=== PATIENT | male | born 2000 | race Caucasian/White ===

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

== ENCOUNTER 2020-08-10 09:19 | Emergency (ER) | payer SELFPAY ==
[2020-08-10] MEDS ORDERED: Diphtheria,Pertussis(Acell),Tetanus Vaccine 0.5 ML Syringe IM ONE (09:53)
--- NOTE | 2020-08-10 10:45 | EDM.PDOC ---
ED HPI GENERAL MEDICAL PROBLEM - General Stated Complaint: R HAND INJURY Time Seen by Provider: 08/10/20 09:35 Source of Information: Reports: Patient History Limitations: Reports: No Limitations - History of Present Illness INITIAL COMMENTS - FREE TEXT/NARRATIVE: 20-year-old male forts that 2 weeks ago he punched his car window with his right hand and he had some pain in the area at the time but it has progressively worsened with time. Today he was angry again and at approximately 8:40 AM he punched his car window glass with his right hand. He did not break the glass but he does have some swelling and pain over the and third metacarpals dorsally of his right hand. He is rating the pain as a 3/10. It is sore and throbbing. Worse with palpation and movement. He does have full movement of his right hand. He also has an abrasion to the dorsal aspect of the right index finger. There are no other injuries. There are no other associated signs or symptoms. There are no other modifying factors. 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 Right Hand Pain Score (Numeric/FACES): 3 - Related Data Allergies Allergy/AdvReac Type Severity Reaction Status Date / Time No Known Allergies Allergy Verified 07/18/16 21:31 Home Meds: Home Meds NK [No Known Home Meds] 07/18/16 [History] Past Medical History - Past Health History Medical/Surgical History: Denies Medical/Surgical History Social & Family History - Tobacco Use Tobacco Use Status *Q: Current Every Day Tobacco User - Caffeine Use Caffeine Use: Reports: Coffee - Alcohol Use Alcohol Use History: Yes Alcohol Use Frequency: Socially - Living Situation & Occupation Occupation: Employed (He works at a [employer].) Review of Systems - Review of Systems Review Of Systems: See Below Constitutional: Reports: No Symptoms (It has been greater than 5 years since his last tetanus immunization.) Eyes: Reports: No Symptoms Ears: Reports: No Symptoms Nose: Reports: No Symptoms Mouth/Throat: Reports: No Symptoms Respiratory: Reports: No Symptoms Cardiovascular: Reports: No Symptoms GI/Abdominal: Reports: No Symptoms Genitourinary: Reports: No Symptoms Musculoskeletal: Reports: Hand Pain (Right), Other (Left-hand dominant.) Skin: Reports: Wound (Abrasion over dorsal aspect of right index finger ) Neurological: Reports: No Symptoms ED EXAM, GENERAL - Physical Exam Exam: See Below Exam Limited By: No Limitations General Appearance: Alert, WD/WN, No Apparent Distress Eye Exam: Bilateral Eye: EOMI, Normal Inspection Ears: Normal External Exam, Hearing Grossly Normal Ear Exam: Right Ear: Auricle Normal Nose: Normal Inspection, Normal Mucosa, No Blood Throat/Mouth: Normal Inspection, Normal Lips, Normal Oropharynx, Normal Voice, No Airway Compromise Head: Atraumatic Neck: Normal Inspection, Supple, Non-Tender, Full Range of Motion Respiratory/Chest: No Respiratory Distress, Lungs Clear, Normal Breath Sounds, No Accessory Muscle Use, Chest Non-Tender Cardiovascular: Normal Peripheral Pulses, Regular Rate, Rhythm, No Murmur Peripheral Pulses: 2+: Radial (L), Radial (R) GI/Abdominal: Normal Bowel Sounds, Soft, Non-Tender Back Exam: Normal Inspection, Full Range of Motion Extremities: Normal Range of Motion, No Pedal Edema, Normal Capillary Refill, Other (Tender over the dorsal aspect of the right hand second and third MCP areas. No crepitus. No definite bony deformity. Mild swelling.) Neurological: Alert, Oriented, CN II-XII Intact, Normal Cognition, No Motor/Sensory Deficits Psychiatric: Normal Affect Skin Exam: Warm, Dry, Normal Color, No Rash, Wound/Incision (Abrasion over the dorsal aspect of the right fifth finger.) Course - Vital Signs Last Recorded V/S: Last Vital Signs Temp 36.8 C 08/10/20 09:20 Pulse 56 L 08/10/20 10:46 Resp 20 08/10/20 10:46 BP 149/91 H 08/10/20 10:46 Pulse Ox 99 08/10/20 10:46 - Orders/Labs/Meds Meds: Medications Discontinued Medications Generic Name Dose Route Start Last Admin Trade Name Freq PRN Reason Stop Dose Admin Diphtheria/Tetanus/Acell Pertussis 0.5 ml 08/10/20 09:53 08/10/20 10:45 Diphtheria,Pertussis(Acell),Tetanus Vaccine 0.5 Ml Syringe IM 08/10/20 09:54 0.5 ml .ONCE ONE Administration - Radiology Interpretation Free Text/Narrative:: X-ray right hand shows no fracture. - Re-Assessments/Exams Free Text/Narrative Re-Assessment/Exam: 08/10/20 10:30: The x-ray of his right hand showed no definite contracture. He has full range of motion in the right hand. There was an abrasion on his right index finger and he will be given a Tdap immunization because it has been greater than 5 years since his last tetanus immunization. He can use ibuprofen and Tylenol for pain as needed. He should apply ice packs intermittently to the area. I offered him an Nick wrap but he refused it. He should have activity as tolerated with his right hand. Departure - Departure Time of Disposition: 10:45 Disposition: Home, Self-Care 01 Condition: Good Clinical Impression: Contusion of right hand, initial encounter, Abrasion of right index finger, initial encounter - Discharge Information Instructions: Hand Contusion, [id number], Abrasion, [id number] Referrals: PCP,None [Primary Care Provider] - Forms: ED Department Discharge Additional Instructions: The x-ray of your right hand showed no definite fracture. You should apply ice packs intermittently to the right hand for the next few days. Avoid any strenuous use with your right hand for the next few days. He should have activity as tolerated otherwise with your right hand. You were given a Tdap immunization to bring your tetanus immunization status up-to-date. You can take ibuprofen or Tylenol as needed for pain. Back to the emergency department for marked increase in pain, redness or any other signs of infection or any other concerning signs or symptoms. Sepsis Event Note (ED) - Focused Exam Vital Signs: Vital Signs Temp Pulse Resp BP Pulse Ox 08/10/20 10:46 56 L 20 149/91 H 99 08/10/20 09:20 36.8 C 62 20 153/85 H 98
[2020-08-10 11:14] VITALS: BP 149/91; PULSE 56
--- NOTE | 2020-08-10 11:37 | CR ---
INDICATION: Punched a window with right hand, now with pain, second knuckle/finger. RIGHT HAND: Three views of the right hand were obtained 08/10/20 - no comparison. Acute fracture, dislocation or other definite bone or joint abnormality, was not identified. If symptoms persist - if occult fracture site is suspected clinically, reexamination in 10-14 days may be helpful. MTDD
== END 2020-08-10 10:54 | disposition home or self-care (01) ==
LOC: FB.ED 09:19
DX: S60.221A Contusion of right hand, initial encounter (principal); Z23 Encounter for immunization; Z72.0 Tobacco use; W22.8XXA Striking against or struck by other objects, initial encounter
CPT/HCPCS: 73130-RT; 90471; 90715; 99283-25

== ENCOUNTER 2020-09-07 16:03 | Emergency (ER) | payer SELFPAY ==
--- NOTE | 2020-09-07 16:53 | EDM.PDOC ---
ED HPI GENERAL MEDICAL PROBLEM - General Stated Complaint: EAR PAIN Time Seen by Provider: 09/07/20 16:50 Source of Information: Reports: Patient History Limitations: Reports: No Limitations - History of Present Illness INITIAL COMMENTS - FREE TEXT/NARRATIVE: 20-year-old male who reports onset of pain yesterday morning. He reports that it was a crackling and aching type feeling with popping and sharp sensation and it has persisted today and seems to have worsened with time. He has had no drainage from that ear. He has had no nasal congestion. There has been no sore throat. He rates the pain as a 6/10. He reports that it feels exactly like when he had an ear infection as a child. No history of trauma to the ear. No Q-tips used in the left ear.. There are no other associated signs or symptoms. There are no other modifying factors. 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 Surgical history as detailed below.) - Past Surgical History HEENT Surgical History: Reports: Myringotomy w Tube(s) (As a child.) Social & Family History - Tobacco Use Tobacco Use Status *Q: Current Every Day Tobacco User - Caffeine Use Caffeine Use: Reports: Soda - Alcohol Use Alcohol Use History: No - Living Situation & Occupation Occupation: Employed (He works at a [employer].) ED ROS ENT - Review of Systems Review Of Systems: See Below Constitutional: Denies: Fever, Chills HEENT: Reports: Ear Pain. Denies: Throat Pain Respiratory: Denies: Shortness of Breath, Cough Cardiovascular: Denies: Chest Pain, Palpitations Endocrine: Denies: Fatigue GI/Abdominal: Denies: Nausea, Vomiting : Denies: Dysuria, Hematuria Musculoskeletal: Denies: Neck Pain, Back Pain Skin: Denies: Diaphoresis, Rash Neurological: Denies: Dizziness, Headache Psychiatric: Denies: Anxiety Hematologic/Lymphatic: Denies: Easy Bleeding, Easy Bruising ED EXAM, ENT - Physical Exam Exam: See Below Exam Limited By: No Limitations General Appearance: Alert, WD/WN, Mild Distress (Appears in some discomfort. He is nontoxic.) Eye Exam: Bilateral Eye: EOMI, Normal Inspection, PERRL Ears: Normal External Exam, Normal Canal, Hearing Grossly Normal, TM Bulging (L eft ear), TM Erythema (Left TM erythema) Nose: Normal Inspection, Normal Mucousa, No Blood Mouth/Throat: Normal Inspection, Normal Lips, Normal Oropharynx Head: Atraumatic, Normocephalic Neck: Normal Inspection, Supple, Non-Tender, Full Range of Motion Respiratory/Chest: No Respiratory Distress, Lungs Clear, Normal Breath Sounds, No Accessory Muscle Use, Chest Non-Tender Cardiovascular: Normal Peripheral Pulses, Regular Rate, Rhythm, No Murmur GI/Abdominal: Normal Bowel Sounds, Soft, Non-Tender Back: Normal Inspection Extremities: Normal Inspection, Normal Range of Motion, Non-Tender, No Pedal Edema, Normal Capillary Refill Neurological: Alert, Oriented, CN II-XII Intact, Normal Cognition Psychiatric: Normal Affect Skin: Warm, Dry, Intact, Normal Color, No Rash Course - Vital Signs Last Recorded V/S: Last Vital Signs Temp 36.2 C 09/07/20 16:03 Pulse 60 09/07/20 17:12 Resp 18 09/07/20 17:12 BP 136/79 09/07/20 17:12 Pulse Ox 98 09/07/20 17:12 - Re-Assessments/Exams Free Text/Narrative Re-Assessment/Exam: 09/07/20 17:00: Patient with acute left otitis media. He will be placed on Augmentin 875 by mouth twice a day for 10 days. He should be able to go to work tomorrow. He can take ibuprofen and Tylenol for pain as needed. Precautions and reasons for return to the emergency room were discussed with the patient while he was in the emergency department and were detailed in the patient's discharge instructions. Departure - Departure Time of Disposition: 17:05 Disposition: Home, Self-Care 01 Condition: Good Clinical Impression: Acute left otitis media - Discharge Information Prescriptions: Amoxicillin/Clavulanate K [Augmentin 875-125 MG] 1 tab PO BID 10 Days #20 tablet Instructions: Otitis Media, Adult, [id number] Referrals: PCP,None [Primary Care Provider] - Forms: ED Return to Work/School Form Additional Instructions: You have a left middle ear infection. You can take ibuprofen and Tylenol as needed for pain. Medication as prescribed (Augmentin 875 mg). You should take probiotics or eat yogurt daily while you are on the antibiotics. Back to the emergency department for high fever, unrelenting vomiting or any other concerning signs or symptoms.
[2020-09-07 17:28] VITALS: BP 136/79; PULSE 60
== END 2020-09-07 17:15 | disposition home or self-care (01) ==
LOC: FB.ED 16:03
DX: H66.92 Otitis media, unspecified, left ear (principal); Z72.0 Tobacco use
CPT/HCPCS: 99282; 99283

== ENCOUNTER 2021-01-15 19:31 | Emergency (ER) | payer BC ==
[2021-01-15] MEDS ORDERED: Amoxicillin 500 MG Cap PO STA (19:54)
--- NOTE | 2021-01-15 20:01 | EDM.PDOC ---
ED HPI GENERAL MEDICAL PROBLEM - General Chief Complaint: ENT Problem Stated Complaint: throat Time Seen by Provider: 01/15/21 19:35 Source of Information: Reports: Patient History Limitations: Reports: No Limitations - History of Present Illness INITIAL COMMENTS - FREE TEXT/NARRATIVE: Patient presented to the ED because of sore throat for 4 days. He also c/o odynophagia but no drooling. There is cough/cold, no fever or chills. - Related Data Allergies Allergy/AdvReac Type Severity Reaction Status Date / Time No Known Allergies Allergy Verified 07/18/16 21:31 Home Meds: Home Meds Amoxicillin/Clavulanate K [Augmentin 875-125 MG] 1 tab PO BID 10 Days #20 tablet 09/07/20 [Rx] Amoxicillin 875 mg PO BID #20 tablet 01/15/21 [Rx] Past Medical History - Past Health History Medical/Surgical History: Denies Medical/Surgical History (No chronic medical problems. Surgical history as detailed below.) HEENT History: Reports: None Cardiovascular History: Reports: None Respiratory History: Reports: None Musculoskeletal History: Reports: None Neurological History: Reports: None - Past Surgical History HEENT Surgical History: Reports: Myringotomy w Tube(s) (As a child.) Social & Family History - Family History Family Medical History: No Pertinent Family History - Caffeine Use Caffeine Use: Reports: Soda - Living Situation & Occupation Occupation: Employed (He works at a [employer].) ED ROS ENT - Review of Systems Review Of Systems: See Below Constitutional: Reports: No Symptoms HEENT: Reports: Throat Pain Respiratory: Reports: Cough Cardiovascular: Reports: No Symptoms Endocrine: Reports: No Symptoms GI/Abdominal: Reports: No Symptoms : Reports: No Symptoms Musculoskeletal: Reports: No Symptoms Skin: Reports: No Symptoms Neurological: Reports: No Symptoms Psychiatric: Reports: No Symptoms ED EXAM, ENT - Physical Exam Exam: See Below Exam Limited By: No Limitations General Appearance: Alert, No Apparent Distress Eye Exam: Bilateral Eye: PERRL Ears: Normal External Exam, Normal Canal, Hearing Grossly Normal Nose: Normal Inspection, Normal Mucousa Mouth/Throat: Pharyngeal Erythema, Throat Pain Neck: Normal Inspection, Supple, Non-Tender, Full Range of Motion Respiratory/Chest: No Respiratory Distress, Lungs Clear, Normal Breath Sounds, No Accessory Muscle Use, Chest Non-Tender Cardiovascular: Normal Peripheral Pulses, Regular Rate, Rhythm, No Edema, No Gallop, No JVD, No Murmur GI/Abdominal: Normal Bowel Sounds, Soft, Non-Tender, No Organomegaly, No Distention, No Abnormal Bruit, No Mass Back: Normal Inspection, Full Range of Motion Extremities: Normal Inspection, Normal Range of Motion, Non-Tender, No Pedal Edema, Normal Capillary Refill Neurological: Alert, Oriented, CN II-XII Intact, Normal Cognition Course - Vital Signs Text/Narrative:: Amoxicillin 1000 mg PO x1 - Orders/Labs/Meds Orders: Active Orders 24 hr Category Date Time Status Amoxicillin [Amoxil] Med 01/15/21 19:54 Stat 1,000 mg PO NOW STA Departure - Departure Time of Disposition: 20:15 Disposition: Home, Self-Care 01 Condition: Good Clinical Impression: Exudative pharyngitis - Discharge Information Prescriptions: Amoxicillin 875 mg PO BID #20 tablet Instructions: Pharyngitis, [id number] Referrals: PCP,None [Primary Care Provider] - Additional Instructions: Please read discharge instructions on pharyngitis/sore throat Gurgle with salt and water twice daily Increase fluid intake Amoxicillin 875 mg twice daily for 10 days Ibuprofen 800 mg with tylenol 1000 mg every 8 hours as needed for pain/swelling Follow up as needed - My Orders Last 24 Hours: My Active Orders 01/15/21 19:54 Amoxicillin [Amoxil] 1,000 mg PO NOW STA - Assessment/Plan Last 24 Hours: My Active Orders 01/15/21 19:54 Amoxicillin [Amoxil] 1,000 mg PO NOW STA
[2021-01-15 20:32] VITALS: BP 147/88; PULSE 108
== END 2021-01-15 20:10 | disposition home or self-care (01) ==
LOC: FB.ED 19:31
DX: J02.9 Acute pharyngitis, unspecified (principal)
CPT/HCPCS: 99283; A9270-GY